=== PATIENT | male | born 1955 | race Caucasian/White ===

== ENCOUNTER 2023-12-25 09:14 | Outpatient (CLI) | payer MEDICARE, BC ==
[2023-12-25] MEDS ORDERED: Iopamidol-M 300 61% 15 ML VIAL ONE (09:18)
[2023-12-25] MEDS ORDERED: Lidocaine 1% PF 5 ML VIAL ONE (09:56)
[2023-12-25] MEDS ORDERED: Sodium Bicarbonate 2.5 MEQ/5 ML SDV ONE (09:56)
[2023-12-25 11:07] VITALS: BP 145/89; TEMP 98.1
== END 2023-12-25 11:32 | disposition home or self-care (01) ==
LOC: CSHRAD 09:14
PROVIDERS: ATTEND Neurological Surgery
DX: M50.30 Other cervical disc degeneration, unspecified cervical region (principal); M47.812 Spondylosis without myelopathy or radiculopathy, cervical region; M51.34 Other intervertebral disc degeneration, thoracic region
CPT/HCPCS: 62305; 72126; 72129